=== PATIENT | male | born 1970 | race Caucasian/White ===

== ENCOUNTER 2020-10-25 13:39 | Emergency (ER) | payer MEDICAID, SELFPAY ==
[2020-10-25 13:41] VITALS: BP 139/66; PULSE 68; RESP 14; TEMP 36.2; O2SAT 97; BMI 34.0
--- NOTE | 2020-10-25 14:03 | ED.DCSUM_ITS ---
History of Present Illness Chief Complaint: Abd Pain Informant: Patient Onset: Weeks Context: Sudden Onset Timing: Continuous Quality: Like I ate a stick and got pushing out Location: Epigastrium and spreads. Symptoms predominantly on the left side Current Severity: Mild Maximum Severity: Moderate Worsened by: Nothing specific Relieved by: Nothing Associated Symptoms: , Diaphoresis with severe pain and 25 pound weight gain Narrative: Patient is a 50-year-old male who presents because of abdominal pain that he states is in the epigastrium and feels as if his guts are pushing out and he ate a stick. He denies black or maroon stool. He does report mucus in his stool. He states he has a history of Crohn's disease. He is on no medication for Crohn's disease. He reports that he had a colonoscopy by Dr. Roberto. He denies polypectomy. He denies history of diverticulosis or diverticulitis. He denies intolerance to greasy or fried foods. He denies fever or chills. He denies night sweats. He states he feels as if he is retaining fluid. He has discomfort in his head, torso, abdomen, hip and lower extremity on the left side. He denies any ocular, visual auditory symptoms. Denies trouble with speech or swallowing. He denies chest discomfort or respiratory symptoms. He denies dysuria, frequency, urgency or hematuria. He has no history of renal or ureterolithiasis. He denies history of trauma. He has not noted a rash. Prior similar symptoms: No Recent Illness/Hospitalization: No - Past Medical History (1) History of Crohn's disease Status: Acute Past Medical History - Allergies and Home Meds Allergies/Adverse Reactions: Allergies aspirin Allergy (Verified 10/25/20 13:40) gi bleed Primary Care Physician: Jose Russell MD [Primary Care Provider] - Prior records reviewed: Yes Surgical History: appendectomy Lives: Spouse/ Significant Other Smoking Status: Current every day smoker Alcohol: Rare Drugs: None Review of Systems General: Reports: Malaise, Sweats - With pain. Denies: Chills, Fever, Subje ctive Eyes: Denies: Blurred vision - left, Blurred Vision - bilaterally ENT: Denies: Bilateral ear pain, Rhinorrhea, Sore throat Cardiovascular: Denies: Chest pain, Palpitations Respiratory: Denies: Dyspnea, Cough, Dyspnea on exertion Gastrointestinal: Reports: Abdominal pain, Nausea. Denies: Vomiting, Diarrhea, Constipation, Melena, Hematochezia Genitourinary: Denies: Dysuria, Hematuria, Frequency Musculoskeletal: Reports: Back pain. Denies: Myalgias, Arthralgias, Neck pain, Swelling, Extremity Pain Skin: Denies: Rash, Wounds Neurological: Denies: Headache, Weakness, Parasthesia Endocrine: Denies: Polyuria, Polydipsia Hematologic: Denies: Easy bruising, Easy bleeding Allergy: Denies: Uticaria Physical Exam Vital Signs/Narrative: Vital Signs Temp Pulse Resp BP Pulse Ox 10/25/20 13:41 97.2 F L 68 14 139/66 H 97 Inital Vital Signs reviewed: Yes General: Well nourished, Well developed Head: Normocephalic, Atraumatic Eyes: Perrl, EOMI. Negative for: Pale conjunctiva, Scleral icterus ENT: Moist mucous membranes, No rhinorrhea Neck: Supple, Nontender, No lymphadenopathy, No JVD Cardiovascular: Regular rate, Regular rhythm, No murmurs, Normal S1, Normal S2 Respiratory: No distress, CTA bilaterally, Chest nontender Abdomen: Soft, Nontender, Nondistended, Normal bowel sounds, No masses. Negative for: Hepatomegaly, Splenomegaly, Mass, Pulsatile mass, Ventral hernia Rectal: Deferred Back: Nontender, Normal Inspection. Negative for: CVA tenderness Extremities: Nontender, No edema. Negative for: Tenderness, Edema, Calf Tende rness Skin: Normal color, No rash, No Trauma. Negative for: Cyanosis, Diaphoresis, Jaundice Neurological: Alert, Oriented x3, Cranial nerves II-XII grossly intact, Normal Strength, Normal Sensation Psychological: Normal affect Diagnostic/Tx/Re-eval Laboratory Results 10/25/20 10/25/20 10/25/20 14:15 14:15 14:15 WBC 6.6 RBC 5.67 Hgb 16.3 Hct 47.2 MCV 83.2 MCH 28.7 MCHC 34.5 RDW Std Deviation 38.2 RDW Coeff of Jack 12.8 Plt Count 235 MPV 10.1 Immature Gran % (Auto) 0.300 Neut % (Auto) 57.7 Lymph % (Auto) 30.4 [place] % (Auto) 8.9 Eos % (Auto) 2.1 Baso % (Auto) 0.6 Absolute Neuts (auto) 3.8 Absolute Lymphs (auto) 2.02 Nucleated RBC % 0 Sodium 139 Potassium 4.0 Chloride 107 Carbon Dioxide 26.0 Anion Gap 6 BUN 6 L Creatinine 0.89 Estim Creat Clear Calc 111.41 Est GFR (MDRD) Af Amer 117 Est GFR (MDRD) Non-Af 97 BUN/Creatinine Ratio 6.7 L Glucose 84 Calcium 9.3 Total Bilirubin 0.70 AST 20 ALT 35 Alkaline Phosphatase 93 Total Protein 7.9 Albumin 4.3 Globulin 3.6 Albumin/Globulin Ratio 1.2 Lipase 51 L Cortisol 9.90 Cortisol level was normal. This was obtained because of reported weight gain in spite of not eating. - Medical Decision Making Differential diagnosis would include peptic ulcer disease, reflux, exacerbation of Crohn's disease, abdominal pain of unknown etiology, Harshaw syndrome pancreatitis and malignancy. Appropriate labs were obtained. Depending on results of laboratory results tests may need colonoscopy versus CT. Patient was informed of his test results. Patient was informed that he probably needs a colonoscopy. Informed him since he has a benign abdominal exam from a medical standpoint and normal laboratory tests CAT scan will not be of value. Informed him of concerns for radiation etc. He agrees that he believes he needs a colonoscopy. He has seen Dr. Sloan at the [facility] and his PCP is Dr. Van. Patient declined pain medicine. Of note home-going indicates his primary care physician Dr. Jose Russell. ED Disposition - Plan for ED Patient: Disposition: Home or Assisted Living Diagnosis: Left-sided abdominal pain of unknown etiology, Abnormal weight gain Instructions: ED Unknown Causes of Abdominal ... Referrals: Jose Russell MD [Primary Care Provider] - 5-7 Days
[2020-10-25 14:25] LABS: Absolute Lymphocyte Count 2.02 X10^3/uL (0.83-4.51); Absolute Neutrophil Count 3.8 X10^3/uL (2.0-7.7); Basophil# 0.04 X10^3/uL; Basophil% 0.6 % (0-1); Eosinophil# 0.14 X10^3/uL; Eosinophils% 2.1 % (0-5); Hematocrit 47.2 % (40-54); Hemoglobin 16.3 g/dL (13.0-16.5); Lymphocyte # 2.02 X10^3/ul (4.0); Lymphocyte % 30.4 % (19-41); Mean Corp Hgb Conc 34.5 g/dL (32-36); Mean Corpuscular Hgb 28.7 pg (27.0-32.0); Mean Corpuscular Volume 83.2 fL (80-94); Mean Platelet Vol. 10.1 fl (6.2-12.0); Monocyte# 0.59 X10^3/uL; Monocyte% 8.9 % (0-10); NRBC Flagged by Analyzer 0 % (0-5); Neutrophil # 3.83 X10^3/uL (2.7-7.7); Neutrophil % 57.7 % (47-70); Platelet Count 235 K/mm3 (150-450); RBC Distribution Width CV 12.8 % (11.6-14.6); RBC Distribution Width SD 38.2 fl (35.1-43.9); Red Blood Count 5.67 M/mm3 (4.6-6.2); White Blood Count 6.6 K/mm3 (4.4-11.0)
[2020-10-25 14:41] LABS: ALB/GLOB Ratio 1.2 RATIO (0.9-2.4); AST(SGOT) 20 U/L (15-37); Alanine Aminotransfer ALT/SGPT 35 U/L (16-61); Albumin, Serum 4.3 g/dL (3.2-5.0); Alkaline Phosphatase 93 U/L (45-117); Anion Gap 6 (5-15); BUN 6 mg/dL (7-18); BUN/Creat Ratio 6.7 RATIO (10-20); Calcium,Total 9.3 mg/dL (8.5-10.1); Chloride 107 mmol/L (98-107); Creatinine, Serum 0.89 mg/dL (0.70-1.30); EST Glomerular Filtration Rate 97 mL/min (>60); Est Glom Filt Rate - Afr Amer 117 mL/min (>60); Estimated Creatinine Clearance 111.41 ml/min; Globulin 3.6 g/dL (2.2-4.2); Glucose 84 mg/dL (74-106); Lipase 51 U/L (73-393); Protein, Total 7.9 g/dL (6.4-8.2); Sodium Level 139 mmol/L (136-145)
[2020-10-25 15:16] VITALS: BP 133/87; PULSE 66; RESP 16; O2SAT 99
== END 2020-10-25 15:17 | disposition home or self-care (01) ==
PROVIDERS: Emergency Provider Emergency Medicine; PCP Family Medicine
DX: R10.9 Unspecified abdominal pain (principal); R63.5 Abnormal weight gain; K50.90 Crohn's disease, unspecified, without complications; F17.200 Nicotine dependence, unspecified, uncomplicated
CPT/HCPCS: 80053; 82533; 83690; 85025; 99282; A4216

== ENCOUNTER → 2020-11-17 10:25 | Outpatient (CLI) | payer MEDICAID, SELFPAY ==
[2020-11-10 09:44] VITALS: BMI 35.4
--- NOTE | 2020-11-17 10:28 | CT_ITS ---
STUDY: CT ABDOMEN AND PELVIS WITH CONTRAST REASON FOR EXAM: Male, 50 years old. ABD PAIN LUQ X 3 MONTHS RADIATION DOSAGE (If Supplied By Facility): CTDIvol = ( 18.31 ) mGy, DLP = ( 1279.91 ) mGycm TECHNIQUE: Transaxial images were obtained from the dome of the diaphragm to the symphysis pubis with oral contrast. Oral and amp; IV Gastrografin and amp; 100mL Isovue-300 was administered. Sagittal and coronal images were reconstructed. Individualized dose optimization techniques were used for this CT. COMPARISON: Comparison is made with prior study dated 03/19/2014. FINDINGS: The visualized lung bases are unremarkable. The visualized portions of the heart are within normal limits. There is decreased attenuation of the liver consistent with steatosis. Normal gallbladder and extrahepatic biliary system. Normal spleen. Normal pancreas. Normal bilateral adrenal glands. Normal right kidney. Normal left kidney. Normal visualized stomach. Normal small intestine. There are scattered colonic diverticula consistent with diverticulosis. There is non-visualization of the appendix. Normal abdominal aorta. Normal inferior vena cava. There is borderline retroperitoneal lymphadenopathy with enlarged nodes no greater than 10mm in the short axis diameter. Normal urinary bladder. Normal abdominal wall. Normal osseous structures. CT/Abdomen/Pelvis WITH Contrast IMPRESSION: Scattered sigmoid diverticula. Fatty infiltration of the liver. Electronically Signed: Timbo Ni MD at 13:28 EST , Service support ,
--- NOTE | 2020-11-17 13:07 | NURSING ---
AFTER CONTRAST GIVEN FOR CT, PT BECAME ANXIOUS, SHIVERING, SWEATING, RED IN THE FACE, LAYED ON A CART AND MONITORED, AIRWAY INTACT 141/93 RESP 124 HEART RATE 82 100% PO2 LEVEL. WITHIN A FEW MINUTES PATIENT STARTING TO FEEL BETTER, BREATHING HAS SLOWED DOWN AND PATIENT IS LESS TENSE THEN EARLIER
--- NOTE | 2020-11-17 13:24 | NURSING ---
FEELING BETTER, DENIES NEED FOR A RIDE HOME, FURTHER ASSISTANCE VS 124/87 HR 82. RESP 16 100% PO2, DISCOMFORT WITH MOVING IN UPPER LEFT QUADRANT OF CHEST AREA, NO WORSE THEN PRIOR TO SCAN/BASELINE, NURSE WALKED PATIENT OUT AND TO THE DOOR, TOKERATED WELL
== END ==
PROVIDERS: PCP Family Medicine; Referring Provider Surgery; Visit Provider Surgery
DX: R10.9 Unspecified abdominal pain (principal)
CPT/HCPCS: 74177; Q9967

== ENCOUNTER → 2020-11-18 16:00 | Outpatient (CLI) | payer MEDICAID, SELFPAY ==
[2020-11-10 09:44] VITALS: BMI 35.4
[2020-11-18 17:32] LABS: Absolute Lymphocyte Count 1.47 X10^3/uL (0.83-4.51); Absolute Neutrophil Count 4.5 X10^3/uL (2.0-7.7); Basophil# 0.02 X10^3/uL; Basophil% 0.3 % (0-1); Eosinophil# 0.04 X10^3/uL; Eosinophils% 0.6 % (0-5); Hematocrit 48.6 % (40-54); Hemoglobin 16.6 g/dL (13.0-16.5); Lymphocyte # 1.47 X10^3/ul (4.0); Lymphocyte % 22.5 % (19-41); Mean Corp Hgb Conc 34.2 g/dL (32-36); Mean Corpuscular Hgb 28.2 pg (27.0-32.0); Mean Corpuscular Volume 82.7 fL (80-94); Mean Platelet Vol. 9.9 fl (6.2-12.0); Monocyte# 0.47 X10^3/uL; Monocyte% 7.2 % (0-10); NRBC Flagged by Analyzer 0 % (0-5); Neutrophil # 4.52 X10^3/uL (2.7-7.7); Neutrophil % 69.2 % (47-70); Platelet Count 256 K/mm3 (150-450); RBC Distribution Width CV 12.7 % (11.6-14.6); RBC Distribution Width SD 38.4 fl (35.1-43.9); Red Blood Count 5.88 M/mm3 (4.6-6.2); White Blood Count 6.5 K/mm3 (4.4-11.0)
[2020-11-18 18:21] LABS: ALB/GLOB Ratio 1.2 RATIO (0.9-2.4); AST(SGOT) 35 U/L (15-37); Alanine Aminotransfer ALT/SGPT 70 U/L (16-61); Albumin, Serum 4.3 g/dL (3.2-5.0); Alkaline Phosphatase 86 U/L (45-117); Anion Gap 6 (5-15); BUN 9 mg/dL (7-18); BUN/Creat Ratio 10.5 RATIO (10-20); Calcium,Total 9.1 mg/dL (8.5-10.1); Chloride 105 mmol/L (98-107); Cholesterol 235 mg/dL (200); Creatinine, Serum 0.86 mg/dL (0.70-1.30); EST Glomerular Filtration Rate 101 mL/min (>60); Est Glom Filt Rate - Afr Amer 122 mL/min (>60); Globulin 3.6 g/dL (2.2-4.2); Glucose 83 mg/dL (74-106); High Density Lipoprotein 56 mg/dL; Potassium 3.8 mmol/L (3.5-5.1); Protein, Total 7.9 g/dL (6.4-8.2); Sodium Level 138 mmol/L (136-145); Thyroid Stim Hormone (TSH) 0.89 uIU/mL (0.358-3.74); Triglycerides 124 mg/dL; Very Low Density Lipoprotein 25 mg/dL (5-40)
== END ==
PROVIDERS: PCP Family Medicine; Referring Provider Family Medicine; Visit Provider Family Medicine
DX: R63.5 Abnormal weight gain (principal); R10.9 Unspecified abdominal pain
CPT/HCPCS: 36415; 80053; 80061; 84403; 84443; 85025

== ENCOUNTER 2021-12-27 08:46 | Emergency (ER) | payer MEDICAID, SELFPAY ==
[2021-12-27 08:47] VITALS: BP 140/93; PULSE 86; RESP 15; TEMP 35.5; O2SAT 99; BMI 33.9
[2021-12-27 08:49] VITALS: BP 140/93; PULSE 86; RESP 15; TEMP 35.5; O2SAT 99
--- NOTE | 2021-12-27 09:14 | EKG12_ITS ---
Test Reason : PAIN Blood Pressure : / mmHG Vent. Rate : 078 BPM Atrial Rate : 078 BPM P-R Int : 154 ms QRS Dur : 086 ms QT Int : 358 ms P-R-T Axes : 054 040 023 degrees QTc Int : 408 ms Normal sinus rhythm Normal ECG Confirmed by ABDI EVANS MD ([id number]), editor producer SONG FIGUEROA ([id number]) on 12/29/2021 1:29:41 PM Referred By: JENNIFFER Confirmed By:ABDI EVANS MD
--- NOTE | 2021-12-27 09:17 | EDS_ITS ---
HPI History of Present Illness Chief Complaint: Other, Pain/Inj Narrative Narrative: Patient who denies significant past medical history presents with pain all over his chest and up to his jaw. He states whenever he moves he has pain. He awoke this morning and had pain in his chest and felt his jaw tight. He denies any fevers or chills. No nausea or vomiting. States he felt mildly sweaty this morning. Of note, he states he began having epigastric abdominal pain yesterday. He went to [facility] in [place] where they performed a CT scan and did a battery of tests and told him that he had a slightly elevated white count of 13,000, but felt it was safe to send him home. They sent him home on antacids. He went home and went to sleep, and woke up this morning with pain. He denies any exacerbating or alleviating factors. [facility] Medical History (Updated 12/27/21 @ 12:05 by Rigo Alexandre MD) History of Crohn's disease Home Medications magnesium 250 mg tablet 250 mg PO DAILY 11/10/20 [History Last Taken Unknown] ibuprofen 800 mg PO TID PRN #20 tab 12/27/21 [Rx Last Taken Unknown] Allergy/AdvReac Type Severity Reaction Status Date / Time aspirin Allergy gi bleed Verified 11/17/20 09:47 Family History Father Multiple sclerosis Colitis Surgical History History of appendectomy History of colonoscopy (~2015) Social History Smoking Status: Former smoker ROS ROS ED ROS Narrative Constitutional: No fever, no chills. [place] sweaty this morning. HEENT: No sore throat. No neck pain. No loss of vision. No rhinorrhea. Cardiovascular: Positive, diffuse chest pain radiating to jaw. No palpitations. No pedal edema. Respiratory: No cough, no shortness of breath. Abdominal: Epigastric abdominal pain yesterday. No nausea. No vomiting. Genitourinary: No dysuria. No hematuria. Musculoskeletal: No myalgias. No arthralgias. Neurologic: No headaches. No dizziness. No lightheadedness. Skin: No rash. No change in color. Psychiatric: No depression. No anxiety. EXAM Physical Exam Narrative Exam Narrative: Afebrile. Vital signs noted. HEENT: Normocephalic. Atraumatic. PERRL, EOMI. Neck soft and supple. No point tenderness or step off. Cardiovascular: Regular rate and rhythm. No murmurs, rubs, or gallops appreciated. Respiratory: No tachypnea. Lungs clear to auscultation bilaterally. Gastrointestinal: Abdomen soft, nontender, with normoactive bowel sounds. No rebound or guarding. Neurological: Awake. Alert. Nonfocal, nonlateralizing. Pain with lying on cot. Feels like muscle spasms. Skin: No rash. Normal color. No pallor. Musculoskeletal: No pedal edema. Full range of motion extremities. Const Vital Signs: 12/27/21 08:47 12/27/21 08:49 12/27/21 09:25 Temperature 96 F L 96 F L Temperature Source Temporal Temporal Pulse Rate 86 86 Respiratory Rate 15 15 Respiratory Effort Normal Non-Labored Respiratory Pattern Normal Blood Pressure 140/93 H 140/93 H Blood Pressure Mean 108 108 Pulse Ox 99 99 98 Oxygen Delivery Method Room Air Room Air Room Air Oxygen Flow Rate (L/min) 12/27/21 09:49 12/27/21 11:29 Temperature 96 F L Temperature Source Temporal Pulse Rate 89 72 Respiratory Rate 18 16 Respiratory Effort Respiratory Pattern Blood Pressure 137/95 H 134/85 H Blood Pressure Mean 109 101 Pulse Ox 98 98 Oxygen Delivery Method Nasal Cannula Nasal Cannula Oxygen Flow Rate (L/min) 2 MDM MDM MDM Narrative Medical decision making narrative: Comprehensive work-up was pursued. He will be more of a chest pain rule out. His EKG demonstrates normal sinus rhythm at 78 bpm without ectopy or acute ST changes. He does have slight concavity ST elevation in the anterior leads V2 through V3 but there are no reciprocal changes. He has normal white count today of 11. Hemoglobin slightly hemoconcentrated at 16.8. Platelet count normal at 206. D-dimer is negative at 0.27. Electrolyte panel is grossly unremarkable. Lipase normal at 37 if not slightly low. TSH normal at 0.67. Initial high-sensitivity troponin negative at 6. Repeat 2 hours later normal at 5. After morphine, he is feeling improved. I am unsure as to the cause of the patient's neck pain and chest pain that is mildly reproducible. It may be more muscular in nature. Regardless, I feel he can be discharged safely home with follow-up. He was referred to her primary care physician. He did request ibuprofen as a prescription. He did have previous GI bleed with aspirin, but states that he can take NSAIDs, and that he will only take a small amount. He will be discharged. Return instructions were reviewed. Patient and agreeable to the plan. Disposition is discharged home in stable condition. Lab Data Attestation: I reviewed the patient's lab results. Labs: Laboratory Results - last 24 hr 12/27/21 12/27/21 12/27/21 09:40 09:40 09:40 WBC 11.0 RBC 5.73 Hgb 16.8 H Hct 47.6 MCV 83.1 MCH 29.3 MCHC 35.3 RDW Std Deviation 39.3 RDW Coeff of Jack 13.2 Plt Count 206 MPV 9.7 Immature Gran % (Auto) 0.500 Neut % (Auto) 79.9 H Lymph % (Auto) 8.2 L [place] % (Auto) 10.7 H Eos % (Auto) 0.4 Baso % (Auto) 0.3 Absolute Neuts (auto) 8.8 H Absolute Lymphs (auto) 0.91 Nucleated RBC % 0 D-Dimer Quant (PE/DVT) 0.27 Sodium 138 Potassium 4.2 Chloride 106 Carbon Dioxide 28.0 Anion Gap 4 L BUN 8 Creatinine 0.95 Estim Creat Clear Calc 103.24 Est GFR (MDRD) Af Amer 109 Est GFR (MDRD) Non-Af 90 BUN/Creatinine Ratio 8.4 L Glucose 97 Calcium 9.3 Magnesium 2.4 Troponin I High Sens 6 Lipase 37 L TSH 0.64 12/27/21 11:30 WBC RBC Hgb Hct MCV MCH MCHC RDW Std Deviation RDW Coeff of Jack Plt Count MPV Immature Gran % (Auto) Neut % (Auto) Lymph % (Auto) [place] % (Auto) Eos % (Auto) Baso % (Auto) Absolute Neuts (auto) Absolute Lymphs (auto) Nucleated RBC % D-Dimer Quant (PE/DVT) Sodium Potassium Chloride Carbon Dioxide Anion Gap BUN Creatinine Estim Creat Clear Calc Est GFR (MDRD) Af Amer Est GFR (MDRD) Non-Af BUN/Creatinine Ratio Glucose Calcium Magnesium Troponin I High Sens 5 Lipase TSH Radiography Diagnostic Testing: Clinical Impression(s) from Imaging Studies Chest X-Ray 12/27/21 09:54 IMPRESSION: Bibasilar atelectasis/infiltrates more prominent on the right side. Blunting of the right costophrenic angle. Electronically Signed: Timbo Ni MD at 10:10 EST , Discharge Plan Triage Chief Complaint: Other, Pain/Inj ED Provider: Rigo Alexandre Dx/Rx/DC Orders Clinical Impression: Chest pain, Pain Instructions: ED Chest Pain, Uncertain Cause, ED Pain, Acute, Uncertain Cause Prescriptions: New ibuprofen 800 mg tablet 800 mg PO TID PRN (Reason: pain) Qty: 20 RF: 0 No Action magnesium 250 mg tablet 250 mg PO DAILY RF: 0 Primary Care Provider: Care Physician,No Primary Referrals: Keenan Black MD [STAFF PHYSICIAN] - As soon as possible Care Physician,No Primary [Primary Care Provider] - Disposition Disposition: Home, Self Care
[2021-12-27 09:25] VITALS: O2SAT 98
--- NOTE | 2021-12-27 09:27 | EKG12_ITS ---
Test Reason : PAIN Blood Pressure : / mmHG Vent. Rate : 085 BPM Atrial Rate : 085 BPM P-R Int : 158 ms QRS Dur : 088 ms QT Int : 358 ms P-R-T Axes : 066 046 035 degrees QTc Int : 426 ms Normal sinus rhythm Abnormal ECG Confirmed by NATHAN JEFFERSON, ABDI ([id number]), proposal editor SONG FIGUEROA ([id number]) on 12/29/2021 1:33:43 PM Referred By: JENNIFFER Confirmed By:ABDI EVANS MD
[2021-12-27] MEDS: Morphine 4 MG/ML Syringe IV (09:45)
[2021-12-27 09:49] VITALS: BP 137/95; PULSE 89; RESP 18; TEMP 35.5; O2SAT 98
[2021-12-27 09:50] LABS: Absolute Lymphocyte Count 0.91 X10^3/uL (0.83-4.51); Absolute Neutrophil Count 8.8 X10^3/uL (2.0-7.7); Basophil# 0.03 X10^3/uL; Basophil% 0.3 % (0-1); Eosinophil# 0.04 X10^3/uL; Eosinophils% 0.4 % (0-5); Hematocrit 47.6 % (40-54); Hemoglobin 16.8 g/dL (13.0-16.5); Lymphocyte # 0.91 X10^3/ul (0.83-4.51); Lymphocyte % 8.2 % (19-41); Mean Corp Hgb Conc 35.3 g/dL (32-36); Mean Corpuscular Hgb 29.3 pg (27.0-32.0); Mean Corpuscular Volume 83.1 fL (80-94); Mean Platelet Vol. 9.7 fl (6.2-12.0); Monocyte# 1.18 X10^3/uL; Monocyte% 10.7 % (0-10); NRBC Flagged by Analyzer 0 % (0-5); Neutrophil # 8.83 X10^3/uL (2.7-7.7); Neutrophil % 79.9 % (47-70); Platelet Count 206 K/mm3 (150-450); RBC Distribution Width CV 13.2 % (11.6-14.6); RBC Distribution Width SD 39.3 fl (35.1-43.9); Red Blood Count 5.73 M/mm3 (4.6-6.2)
--- NOTE | 2021-12-27 09:54 | RAD_ITS ---
STUDY: X-RAY CHEST REASON FOR EXAM: Male, 51 years old. Chest pain TECHNIQUE: Single AP portable view of the chest. COMPARISON: None. FINDINGS: EKG electrodes are seen. Increased markings with areas of confluence in both lower lobes more prominent on the right side. This may represent either bibasilar atelectasis and/or infiltrate. Blunting of the right costophrenic angle. Normal size heart. Normal mediastinum and paulino. Normal visualized pulmonary arteries. Normal visualized aortic arch and descending thoracic aorta. Normal visualized thoracic spine. Normal visualized ribs, clavicles, and shoulders. There is no demonstrated abnormality of the visualized soft tissue structures of the upper abdomen. RAD/Chest 1 View (Portable) IMPRESSION: Bibasilar atelectasis/infiltrates more prominent on the right side. Blunting of the right costophrenic angle. Electronically Signed: Timbo Ni MD at 10:10 EST ,
[2021-12-27 10:01] LABS: D-Dimer Quantitative (DVT/PE) 0.27 FEU/ug/m (0.27-0.49)
[2021-12-27 10:17] LABS: Anion Gap 4 (5-15); BUN 8 mg/dL (7-18); BUN/Creat Ratio 8.4 RATIO (10-20); Calcium,Total 9.3 mg/dL (8.5-10.1); Chloride 106 mmol/L (98-107); Creatinine, Serum 0.95 mg/dL (0.70-1.30); EST Glomerular Filtration Rate 90 mL/min (>60); Est Glom Filt Rate - Afr Amer 109 mL/min (>60); Estimated Creatinine Clearance 103.24 ml/min; Glucose 97 mg/dL (74-106); Magnesium 2.4 mg/dL (1.6-2.6); Potassium 4.2 mmol/L (3.5-5.1); Sodium Level 138 mmol/L (136-145); Thyroid Stim Hormone (TSH) 0.64 uIU/mL (0.358-3.74); Troponin-I HS 6 pg/mL (3.0-78.0)
[2021-12-27 11:05] LABS: Lipase 37 U/L (73-393)
[2021-12-27 11:29] VITALS: BP 134/85; PULSE 72; RESP 16; O2SAT 98
[2021-12-27 11:57] LABS: Troponin-I HS 5 pg/mL (3.0-78.0)
[2021-12-27 12:10] VITALS: BP 116/78; PULSE 70; RESP 16; O2SAT 96
== END 2021-12-27 12:19 | disposition home or self-care (01) ==
PROVIDERS: Emergency Provider Emergency Medicine; Visit Provider Emergency Medicine
DX: R07.9 Chest pain, unspecified (principal); Z87.891 Personal history of nicotine dependence
CPT/HCPCS: 71045; 80048; 83690; 83735; 84443; 84484; 85025; 85379; 93005; 96374; 99285; A4216